=== PATIENT | male | born 1965 | race African-American/Black ===

== ENCOUNTER 2020-07-20 18:15 | Emergency (ER) | payer OTHER ==
[2020-07-20 18:41] VITALS: BMI 27.8
[2020-07-20] MEDS ORDERED: SODIUM CHLORIDE 0.9% 500 ML INFUS.BAG IV ONE (19:19)
[2020-07-20 20:11] VITALS: TEMP 98.5
[2020-07-20 20:33] LABS: BASO % 0.3 % (0-2.0); EOS % 1.9 % (0-4.5); HEMATOCRIT 48.9 % (35.4-49); HEMOGLOBIN 16.3 GM/dL (11.7-16.9); LYMPH % 44.5 % (8-40); MCHC 33.3 g/dl (32.0-35.9); MONO % 9.8 % (3.8-10.2); NEUT % 43.5 % (42.8-82.8); RBC 5.43 M/mm3 (4.00-5.60); RDW 14.6 % (11.9-15.9); WHITE BLOOD COUNT 4.6 K/mm3 (4.0-10.0)
[2020-07-20 20:44] LABS: EPI CELLS 9 /uL (0-25.1); HYALINE CASTS 1 /uL (0-3.1); PH,URINE 5.5 (5.0-8.0); URINE APPEARANCE CLEAR; URINE BACTERIA 22 /uL (0-1359); URINE BILIRUBIN NEGATIVE (NEGATIVE); URINE COLOR YELLOW; URINE GLUCOSE (UA) NEGATIVE (NEGATIVE); URINE KETONE TRACE (NEGATIVE); URINE LEUK ESTERASE NEGATIVE (NEGATIVE); URINE NITRITE NEGATIVE (NEGATIVE); URINE PROTEIN 1+ (NEGATIVE); URINE RBC 6 /uL (0-23.9); URINE WBC 6 /uL (0-25.8)
[2020-07-20 20:49] LABS: CHLORIDE 108 mmol/L (98-107); POTASSIUM 5.4 mmol/L (3.5-5.1); SODIUM 141 mmol/L (136-145)
[2020-07-20 20:52] LABS: CALCIUM 9.2 mg/dL (8.5-10.1)
[2020-07-20 20:53] LABS: ALBUMIN 4.1 g/dl (3.4-5.0); ANION GAP 5 MMOL/L (8-16); BLOOD UREA NITROGEN 10.3 mg/dL (7-18); CO2 27 mmol/L (21-32); GLUCOSE,RANDOM 85 mg/dL (74-106)
[2020-07-20 20:56] LABS: CREATININE 1.3 mg/dL (0.55-1.3); SGOT/AST 47 U/L (15-37); SGPT/ALT 23 U/L (13-61)
[2020-07-20 20:57] LABS: BILIRUBIN,TOTAL 0.6 mg/dL (0.2-1)
[2020-07-20 20:58] LABS: TOT PROT 7.8 g/dl (6.4-8.2)
[2020-07-20 20:59] LABS: ALK PHOS 75 U/L (45-117)
[2020-07-20 21:28] LABS: MEAN PLT VOLUME 9.9 fl (7.5-11.1); PLATELET COUNT 185 K/MM3 (134-434); PLATELET ESTIMATE ADEQUATE
[2020-07-20 23:31] VITALS: BP 154/82; PULSE 76
== END 2020-07-20 23:31 | disposition home or self-care (01) ==
LOC: JER 18:15
DX: R07.9 Chest pain, unspecified (principal); V87.7XXA Person injured in collision between other specified motor vehicles (traffic), initial encounter
CPT/HCPCS: 36415; 71275-TC; 74174-TC; 80053; 81003; 82550; 82553; 84484; 85025; 87086; 87186; 93005; 93010; 99285-25; Q9967